=== PATIENT | female | born 1950 | race Two or more races ===

== ENCOUNTER 2018-09-16 11:02 | Emergency (ER) | payer OTHER ==
[~2018-09-16] VITALS: Ht 165.1 cm; Wt 72.6 kg
[~2018-09-16 11:02] MED LIST: CARV6.2551 PO; CEPH-37 PO; CINA60TA PO; HYDR-4683 PO; MYCO500T3 PO; Prednisone PO; RANI-226 PO; TACR1CAP4 PO
[2018-09-16 11:14] VITALS: BP 119/80
[2018-09-16] MEDS ORDERED: KETOROLAC TROMETH 60MG/2ML VIAL IM ONE (14:00)
== END 2018-09-16 15:28 | disposition home or self-care (01) ==
LOC: ER 11:02 → EDBD 11:02 → ER 15:28
DX: S22.089A Unspecified fracture of T11-T12 vertebra, initial encounter for closed fracture (principal); R51 Headache; I12.9 Hypertensive chronic kidney disease with stage 1 through stage 4 chronic kidney disease, or unspecified chronic kidney disease; N18.9 Chronic kidney disease, unspecified; W17.89XA Other fall from one level to another, initial encounter; Y93.89 Activity, other specified; Y92.89 Other specified places as the place of occurrence of the external cause; Y99.8 Other external cause status
CPT/HCPCS: 70450; 72125; 72131; 72192; 96372; 99284; J1885